=== PATIENT | female | born 1940 | race Caucasian/White ===

== ENCOUNTER 2017-10-31 09:22 | Outpatient (CLI) | payer MEDICARE, BC ==
--- NOTE | 2017-10-31 10:35 | CT ---
NONCONTRAST CT HEAD: DATE: 10/31/17. HISTORY: Vertigo for several years. Hypertension. Dizziness. COMPARISON: 01/15/15. FINDINGS: Scattered low-density areas in the periventricular white matter, nonspecific but likely reflective of chronic small-vessel ischemic changes. There is no evidence of an acute cortical infarction, hemorr [place], mass effect, or midline shift. There is mild cerebral and cerebellar volume loss. The ventric ular system is normal in size, shape, and position for the degree of sulcal atrophy. Visualized paranasal sinuses and mastoid air cells are clear. Calvarial structures are intact. Ther e has been no interval change from the prior exam. IMPRESSION: 1. No acute intracranial abnormality is demonstrated. 2. Mild chronic small-vessel ischemic changes which have not progressed from prior exam. 3. Mild cerebral volume loss. POS: KAYLA
== END 2017-10-31 09:23 | disposition home or self-care (01) ==
LOC: SCSCT 09:22 → CT 09:23
PROVIDERS: ATTEND Specialist
DX: R42 Dizziness and giddiness (principal)
CPT/HCPCS: 70450

== ENCOUNTER 2021-09-22 22:41 | Emergency (ER) | payer MEDICARE, BC | END 2021-09-22 23:04 | disposition left against medical advice (07) | LOC: ERS 22:41 | DX: Z53.21 Procedure and treatment not carried out due to patient leaving prior to being seen by health care provider (principal) ==